=== PATIENT | male | born 1950 | race Caucasian/White ===

== ENCOUNTER → 2016-11-13 | Outpatient (CLI) | payer MEDICARE, OTHER ==
--- NOTE | 2016-11-14 08:32 | RAD ---
EXAM DESCRIPTION: Chest,2 Views CLINICAL HISTORY: COPD COMPARISON: January 07, 2015 FINDINGS: The cardiomediastinal silhouette is unremarkable. The lungs are hyperinflated, but there is no airspace consolidation or pleural effusion. There is no pneumothorax or acute fracture. There is no radiographically apparent lung nodule. IMPRESSION: Emphysema, but no acute intrathoracic abnormality. Electronically signed by: Chemo Moreno MD 11/14/2016 8:31 AM CDT
--- NOTE | 2016-11-14 08:33 | RAD ---
EXAM DESCRIPTION: Abdomen Flat Upright CLINICAL HISTORY: 66 years Male, ABD PAIN COMPARISON: None. FINDINGS: There is no free subdiaphragmatic gas or intra-abdominal air-fluid level. There is a moderate amount of colonic stool and gas. No dilated small bowel loops. There is no suspicious intra-abdominal calcification or mass. No concerning bone lesion. There are degenerative changes in lumbar spine at several levels including degenerative disc disease at L1-2. IMPRESSION: Moderate amount of colonic stool and gas, but no obstruction, pneumoperitoneum or other acute intra-abdominal abnormality. Electronically signed by: Chemo Moreno MD 11/14/2016 8:33 AM CDT
== END | disposition home or self-care (01) ==
LOC: YCFC.O 18:15
PROVIDERS: ATTEND Nurse Practitioner Family
DX: I10 Essential (primary) hypertension (principal); R10.9 Unspecified abdominal pain; Z12.5 Encounter for screening for malignant neoplasm of prostate; R63.0 Anorexia; J44.9 Chronic obstructive pulmonary disease, unspecified
CPT/HCPCS: 36415; 71020; 74010; 80053; 81001; 84443; 85025; 86803; G0103

== ENCOUNTER 2019-04-15 15:23 | Emergency (ER) | payer MEDICARE, OTHER ==
--- NOTE | 2019-04-15 15:40 | ED.PDOC ---
History of Present Illness - General Time Seen by Provider: 04/15/19 15:36 Source: patient, Vital Signs reviewed, EMS notes reviewed Additional Information: 67 YEAR OLD BROUGHT HERE BY EMS FOR EVALUATION OF WEAKNESS DIARRHEA WITH DARK STOOLS ( HE IS ON PLAVIX SP STENT SUPPORTED ANGIOPLASTY OF HIS CORONARY ARTERY AT [facility] HE REPORTS SEVERAL EPISODES OF LOOSE STOOL IN THE LAST 4 DAYS HE HAS SEVERE GENERAL WEAKNESS HE CAN NOT WALK EVEN WITHIN HIS HOUSE HE DENIES VOMITING BLOOD OR COFFEE GROUND EMESIS - History of Present Illness Timing/Duration: intermittent Severity: moderate Improving Factors: nothing Worsening Factors: nothing Associated Symptoms: loss of appetite, weakness, other - NEAR SYNCOPAL EXPERIEN CE Allergies/Adverse Reactions: Allergies NO KNOWN ALLERGY Allergy (Verified 04/15/19 18:44) Home Medications: Ambulatory Orders Aspirin [(None)] 325 mg PO PRN PRN 05/17/15 Lisinopril 5 mg PO DAILY 05/17/15 Acetaminophen [Tylenol] 1,500 mg PO Q6H 05/20/15 Review of Systems - Review of Systems Constitutional: States: weakness EENTM: States: no symptoms reported Respiratory: States: no symptoms reported Cardiology: States: no symptoms reported Gastrointestinal/Abdominal: States: diarrhea Genitourinary: States: no symptoms reported Musculoskeletal: States: no symptoms reported Skin: States: no symptoms reported Neurological: States: no symptoms reported Endocrine: States: no symptoms reported Hematologic/Lymphatic: States: no symptoms reported Past Medical History (General) - Patient Medical History Hx Congestive Heart Failure: No Hx Diabetes: No Family Medical History - Family History Father Family History: No Known Living Status: Physical Exam - Physical Exam General Appearance: Alert Eye Exam: bilateral normal Ears, Nose, Throat: hearing grossly normal, normal ENT inspection Neck: non-tender, full range of motion, supple Respiratory: lungs clear, normal breath sounds, no respiratory distress Cardiovascular/Chest: normal peripheral pulses, regular rate, rhythm, no edema, no gallop, no JVD, no murmur Gastrointestinal/Abdominal: normal bowel sounds, non tender, soft, no organomegaly Back Exam: normal inspection, no CVA tenderness, no vertebral tenderness Extremity: normal range of motion, non-tender, normal inspection, no pedal edema Neurologic: drapery cutter II-XII nml as tested, no motor/sensory deficits, alert, normal mood/affect Skin Exam: normal color, warm/dry Progress - Results/Orders Results/Orders: Laboratory Tests 04/15/19 04/15/19 04/15/19 15:42 15:42 15:42 WBC 8.4 RBC 2.65 L Hgb 8.7 L Hct 25.9 L MCV 97.8 H MCH 32.7 H MCHC 33.5 RDW 17.1 H Plt Count 441 H MPV 7.0 L Absolute Neuts (auto) 6.40 Absolute Lymphs (auto) 1.10 Absolute Monos (auto) 0.70 Absolute Eos (auto) 0.20 Absolute Basos (auto) 0.10 Neutrophils % 76.2 Lymphocytes % 12.7 L Monocytes % 8.1 Eosinophils % 2.0 Basophils % 1.0 PT 10.4 INR 1.04 PTT (SP) 20.4 L Sodium Potassium Chloride Carbon Dioxide Anion Gap BUN Creatinine BUN/Creatinine Ratio Random Glucose Serum Osmolality Calcium Total Bilirubin AST ALT Alkaline Phosphatase Serum Total Protein Albumin Globulin Albumin/Globulin Ratio Stool Occult Blood 04/15/19 04/15/19 15:42 18:55 WBC RBC Hgb Hct MCV MCH MCHC RDW Plt Count MPV Absolute Neuts (auto) Absolute Lymphs (auto) Absolute Monos (auto) Absolute Eos (auto) Absolute Basos (auto) Neutrophils % Lymphocytes % Monocytes % Eosinophils % Basophils % PT INR PTT (SP) Sodium 136 Potassium 4.3 Chloride 103 Carbon Dioxide 22 Anion Gap 15.3 BUN 27 H Creatinine 2.02 H BUN/Creatinine Ratio 13.4 Random Glucose 116 H Serum Osmolality 278.0 Calcium 9.5 Total Bilirubin 0.3 AST 20 ALT 9 L Alkaline Phosphatase 45 Serum Total Protein 7.7 Albumin 3.6 Globulin 4.1 H Albumin/Globulin Ratio 0.9 L Stool Occult Blood Positive Departure - Departure Clinical Impression: GI bleed, CAD in council artery, Acute kidney injury Time of Disposition: 21:21 Disposition: Transfer to Hospital Condition: Good Referrals: Brianda Gregg NP [Primary Care Provider] - 1-2 Weeks Home Medications: Ambulatory Orders Aspirin [(None)] 325 mg PO PRN PRN 05/17/15 Lisinopril 5 mg PO DAILY 05/17/15 Acetaminophen [Tylenol] 1,500 mg PO Q6H 05/20/15 Transfer to Outside Facility - Transfer Information Accepting Provider:: DR PEPE Accepting Facility: [facility] Reason for Transfer: specialized care not available
[2019-04-15] MEDS ORDERED: SODIUM CHLORIDE 0.9% 1000ML 1,000 ML IVS ONE ×2 (15:43→19:26)
[2019-04-15 19:07] VITALS: TEMP 97.9
[2019-04-15] MEDS ORDERED: PANTOPRAZOLE SODIUM IV 40 MG VIAL IV ONE (21:20)
[2019-04-15] MEDS ORDERED: PANTOPRAZOLE INJECTION 80 MG in SODIUM CHLORIDE 0.9% 100ML 80 ML IVPB ONE (21:27)
[2019-04-15] MEDS ORDERED: SODIUM CHLORIDE 0.9% 100ML 100 ML IVPB ONE (21:30)
[2019-04-15 21:47] VITALS: BP 109/68; O2SAT 95
== END 2019-04-15 22:09 | disposition short-term general hospital (02) ==
LOC: ER 15:23
DX: K92.2 Gastrointestinal hemorrhage, unspecified (principal); I25.10 Atherosclerotic heart disease of native coronary artery without angina pectoris; N17.9 Acute kidney failure, unspecified; R19.7 Diarrhea, unspecified; Z79.02 Long term (current) use of antithrombotics/antiplatelets; Z79.82 Long term (current) use of aspirin; Z79.899 Other long term (current) drug therapy
CPT/HCPCS: 36415; 80053; 82270; 85025; 85610; 85730; J7030; J7050

== ENCOUNTER → 2020-03-17 | Outpatient (CLI) | payer MEDICARE, OTHER ==
--- NOTE | 2020-03-18 12:45 | CT ---
Procedure: CT LUNG SCREENING Exam Date: March 17, 2020. Ordering Provider: Brianda Gregg Clinical Indication: NICOTINE DEPENDENCE . Current cigarette smoking. 55 pack years. This patient meets eligibility criteria for low-dose CT lung cancer screening. Comparison: Chest x-ray October 2016. Baseline low-dose CT lung screening. Technique: Using a multislice scanner, sequential helical axial imaging was obtained in the thorax, 2.5 mm thickness, 2.5 mm separation, from the level of the thoracic inlet through the lung bases without IV contrast. A low dose protocol was utilized for BMI less than 30: BMI: 14.5. CTDI: 1.76 mGy. 120. kVp. 45 mA. DLP 74 mGy-cm. 2D sagittal and coronal reconstructed images, 6.0 mm thickness, were obtained. This exam was performed according to our departmental dose optimization program which includes use of automated exposure control, adjustment of the mA and/or kV according to patient size and/or use of iterative reconstruction technique. Nodule measurements under 10 mm are given as mean value of 3 axes diameters. FINDINGS: Lungs and large airways: Marked dilated airspaces with blebs and bulla more prevalent in the upper lobes than the mid and lower lung fong. Largest are subpleural in the left upper lobe. Bilateral pleural parenchymal scarring. No abnormal nodules and no masses. No focal infiltrates.. Pleura and space: Bilateral focal and diffuse thickening with no effusion. Mediastinum and wesley: evaluation limited by low dose technique and lack of IV contrast. Small lymph nodes with no dominant soft tissue masses. Heart and great vessels: Atherosclerotic calcification aorta and several brachiocephalic vessels and coronary artery calcifications. Chest wall, lower neck, axillae: Evaluation also limited by same factors as described above. Multiple enlarged axillary nodes, more on the right. Upper abdomen: Evaluation limited by low-dose technique. No free air or free fluid. Partial visualization of 5.2 cm cyst appearing to arise from the upper left kidney. Abutting the tail of the pancreas. No free air or free fluid. Multiple cysts versus low density lesions in the liver. Atherosclerotic calcification of the abdominal aorta. Osseous structures: Evaluation limited by low dose MIP technique. Mid thoracic spondylosis. Arthrosis sternoclavicular joints and sternomanubrial joints. IMPRESSION: 1. No abnormal nodules or masses. No focal infiltrates. Advanced emphysematous changes predominantly in the upper lung fong, less in the mid lung. [facility] Best Practice Recommendations: please see below for Lung RADS category and FOLLOW-UP.* *Lung RADS category Category 1 - No nodule or definitely benign nodules (probability of malignancy less than 1%). Follow-up: Continue annual screening with Low Dose Chest CT in 12 months. . 2. Lung RADS Modifier S - Clinically Significant or Potentially Clinically Significant Findings (non lung cancer). Multiple coalescent enlarged lymph nodes in the right axilla. Recommend ultrasound for initial examination of the right axilla. Electronically signed by: Helder Rueda MD 03/18/2020 12:43 PM CDT
== END ==
LOC: CT 09:45
PROVIDERS: ATTEND Nurse Practitioner Family
DX: Z87.891 Personal history of nicotine dependence (principal); J43.9 Emphysema, unspecified